=== PATIENT | male | born 1995 | race Caucasian/White ===

== ENCOUNTER 2020-03-10 14:47 | Emergency (ER) | payer BC, OTHER, SELFPAY ==
[~2020-03-10] VITALS: Ht 170.2 cm; Wt 62.7 kg
[2020-03-10] MEDS ORDERED: LORazepam 2 MG/ML VIAL IV STA (14:59)
[2020-03-10] MEDS ORDERED: NS 1,000 ML IV ONE ×2 (15:00→16:00)
[2020-03-10 15:31] LABS: BASO # 0.1 10^3/uL (0.0-0.2); BASO % 0.5 % (0.0-1.0); EOS % 0.3 % (0.0-3.0); HEMATOCRIT 49.7 % (42.0-52.0); HEMOGLOBIN 16.7 g/dl (13.5-17.5); LYMPH # 1.3 10^3/uL (1.5-5.0); LYMPH % 12.9 % (24.0-44.0); MEAN CORPUSCULAR HEMOGLOBIN 30.6 pg (27.0-33.0); MEAN CORPUSCULAR HGB CONC 33.6 g/dl (32.0-36.5); MONO # 0.8 10^3/uL (0.0-0.8); MONO % 7.5 % (0.0-5.0); NEUTROPHILS # 8.2 10^3/uL (1.5-8.5); NEUTROPHILS % 78.5 % (36.0-66.0); PLATELET COUNT, AUTOMATED 304 10^3/uL (150-450); RED BLOOD COUNT 5.46 10^6/uL (4.30-6.10); WHITE BLOOD COUNT 10.4 10^3/uL (4.0-10.0)
[2020-03-10 16:27] LABS: ACETAMINOPHEN LEVEL < 2.0 UG/ML (10.0-30.0); ALBUMIN 4.5 GM/DL (3.2-5.2); ALT/SGPT 13 U/L (12-78); BILIRUBIN,DIRECT 0.3 MG/DL (0.0-0.2); BLOOD UREA NITROGEN 9 MG/DL (7-18); CALCIUM LEVEL 9.6 MG/DL (8.5-10.1); CARBON DIOXIDE LEVEL 27 MEQ/L (21-32); CHLORIDE LEVEL 103 MEQ/L (98-107); CPK CREATINE PHOSPHOKINASE 98 U/L (39-308); CREATININE FOR GFR 1.01 MG/DL (0.70-1.30); ETHYL ALCOHOL (ETHANOL) < 0.003 % (0.000-0.010); GLOMERULAR FILTRATION RATE > 60.0 (>60); GLUCOSE, FASTING 113 MG/DL (70-100); POTASSIUM SERUM 3.8 MEQ/L (3.5-5.1); SALICYLATE LEVEL < 1.7 MG/DL (5.0-30.0); SODIUM LEVEL 138 MEQ/L (136-145); TOTAL PROTEIN 7.7 GM/DL (6.4-8.2)
[2020-03-10 17:33] VITALS: BP 125/58
--- NOTE | 2020-03-10 18:55 | ECGEPIP ---
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
== END 2020-03-10 17:35 | disposition home or self-care (01) ==
LOC: M ED 14:47
DX: F15.10 Other stimulant abuse, uncomplicated (principal); F14.10 Cocaine abuse, uncomplicated
CPT/HCPCS: 36415; 80048; 80076; 82550; 85025; 93005; 93041; 94760; 96361; 96374; 99285; G0480; J2060

== ENCOUNTER 2021-01-02 18:51 | Emergency (ER) | payer OTHER ==
[~2021-01-02] VITALS: Ht 170.2 cm; Wt 67.9 kg
--- OUTSIDE RECORDS SUMMARY | 2021-01-02 18:57 | CCD ---
Author Author [facility] Organization [facility] Address Unknown Phone Unavailable Support Name Relationship Address Phone MEJIA CAGLE Next Of Kin [address] [place] [address] UE Next Of Kin Unknown Unavailable STUDENT Next Of Kin Unknown ST Next Of Kin Unknown Unavailable SU CAGLE Next Of Kin [address] [place] [address] HANSMichelle Gutierrez Next Of Kin [address] [place] [address] Re-disclosure Warning The records that you are about to access may contain information from federally-assisted alcohol or drug abuse programs. If such information is present, then the following federally mandated warning applies: This information has been disclosed to you from records protected by federal confidentiality rules (42 CFR part 2). The federal rules prohibit you from making any further disclosure of this information unless further disclosure is expressly permitted by the written consent of the person to whom it pertains or as otherwise permitted by 42 CFR part 2. A general authorization for the release of medical or other information is NOT sufficient for this purpose. The Federal rules restrict any use of the information to criminally investigate or prosecute any alcohol or drug abuse patient.The records that you are about to access may contain highly sensitive health information, the redisclosure of which is protected by Article 27-F of the [facility] Public Health law. If you continue you may have access to information: Regarding HIV / AIDS; Provided by facilities licensed or operated by the [facility] Office of Mental Health; or Provided by the [facility] Office for People With Developmental Disabilities. If such information is present, then the following [facility] mandated warning applies: This information has been disclosed to you from confidential records which are protected by state law. State law prohibits you from making any further disclosure of this information without the specific written consent of the person to whom it pertains, or as otherwise permitted by law. Any unauthorized further disclosure in violation of state law may result in a fine or fci sentence or both. A general authorization for the release of medical or other information is NOT sufficient authorization for further disc losure. Family History Family Member Name Family Member Gender Family Member Status Date o f Status Description Data Source(s) Unknown Unknown Problem MEDENT ([facility]) Unknown Unknown Problem [facility] ([facility]) Medications No Information Insurance Providers Payer name Policy type / Coverage type Policy ID Covered republican ID Covered republican's relationship to downing Policy Downing Plan Information [employer] [place]/307 [id number] SP [id number] [employer] [id number] SELF PAY ONLY [id number] SP [id number] [employer] [place] PPO 302/307 [id number] SP [id number] BCBS [id number] Blue Cross/Bl ue Shield [id number] BCBS/Blue Card Commercial [id number] Family Dependent [id number] BCBS/Blue Card Commercial [id number] Family Dependent [id number] [employer] PPO O [id number] C [id number] [employer] [id number] 2 [id number] [facility] [place] [id number] [facility] [id number] [employer] [id number] [facility] [place] [id number] [facility] [id number] Problems, Conditions, and Diagnoses No Information Surgeries/Procedures No Information Results No Information Social History No Information
--- OUTSIDE RECORDS SUMMARY | 2021-01-02 20:38 | CCD ---
Author Author [facility] Organization [facility] Address Unknown Phone Unavailable Support Name Relationship Address Phone MARIA CACE Next Of Kin [address] [place] [address] MEJIA CAGLE Next Of Kin [address] [place] [address] UE Next Of Kin Unknown Unavailable STUDENT Next Of Kin Unknown ST Next Of Kin Unknown Unavailable SU CAGLE Next Of Kin [address] [facility] [address] [place] [address] Michelle CAGLE Next Of Kin [address] [place] [address] Re-disclosure Warning The records that you are [...] is protected by Article 27-F of the [place] State Public Health law. If you continue you may have access to information: Regarding HIV / AIDS; Provided by facilities licensed or operated by the [facility] Office of Mental Health; or Provided by the [facility] Office for People With Developmental Disabilities. If such information is present, then the following [facility] mandated warning applies: This information has been [...] law may result in a fine or detention sentence or both. A general authorization for [...] type / Coverage type Policy ID Covered constitution party ID Covered constitution party's relationship to avila Policy Avila Plan Information [employer] [place] P[place] 302/307 [id number] SP [id number] [employer] [id number] SF2 [id number] SELF PAY ONLY [id number] SP [id number] [employer] [place] PPO 302/307 [id number] SP [id number] BCBS [id number] Blue Cross/Bl ue Shield [id number] BCBS/Blue Card Commercial [id number] Family Dependent [id number] BCBS/Blue Card Commercial [id number] Family Dependent [id number] [employer] PPO O [id number] C [id number] [employer] [id number] SF2 [id number] [employer] [facility] [place] [id number] [facility] [id number] [employer] [id number] [facility] [place] [id number] [facility] [id number] Problems, Conditions, and Diagnoses No Information Surgeries/Procedures No Information Results No Information Social History No Information
--- NOTE | 2021-01-02 20:58 | REPVR ---
PROCEDURE INFORMATION: Exam: US Pelvis Limited, Transabdominal, Soft tissue Exam date and time: 01/02/2021 8:45 PM Age: 25 years old Clinical indication: Pelvic pain; Additional info: R testicle pain x 2wks TECHNIQUE: Imaging protocol: Real-time transabdominal pelvic ultrasound with image documentation. Limited exam. Exam focused on the soft tissue. COMPARISON: Scrotal, US 01/02/2021 8:28 PM FINDINGS: No inguinal hernia is visualized. No fluid collection or discrete mass is visualized. IMPRESSION: No inguinal hernia is visualized. Electronically signed by: Ney Valdovinos On 01/02/2021 20:58:11 PM
--- NOTE | 2021-01-02 20:58 | REPVR ---
PROCEDURE INFORMATION: Exam: US Scrotum and Artery or Vein of the Abdominal and/or Reproductive Organs, Limited Scrotum Exam date and time: 01/02/2021 8:45 PM Age: 25 years old Clinical indication: Scrotum pain; Additional info: R testicle pain x 2wks TECHNIQUE: Imaging protocol: Real-time ultrasound of the scrotum. Real-time duplex ultrasound scan of the arterial or venous flow with turner scale, color Doppler flow and spectral waveform analysis with image documentation. Limited Duplex exam focused of the scrotum. Duplex images required to evaluate for torsion and other vascular conditions. COMPARISON: RENAL US 04/14/2015 12:55 PM FINDINGS: Right testicle: Right testicle measures 4.0 x 2.1 x 2.4 cm. Right testicle appears within normal limits. Normal Doppler waveforms without evidence of torsion. Left testicle: Left testicle measures 4.0 x 2.4 x 3.7 cm. Left testicle appears within normal limits. Normal Doppler waveforms without evidence of torsion. Epididymides: Normal. Scrotum: Normal. IMPRESSION: No acute abnormality. Electronically signed by: Ney Valdovinos On 01/02/2021 20:58:21 PM
[2021-01-02] MEDS ORDERED: DOXYCYCLINE HYCLATE 100MG TABLET PO ONE (21:10)
[2021-01-02] MEDS ORDERED: LIDOCAINE 1% SDV 5ML VIAL DILUENT ONE (21:10)
[2021-01-02] MEDS ORDERED: cefTRIAXone 500MG VIAL (J0696 PER 250MG) IM ONE (21:10)
[2021-01-02] MEDS ORDERED: DOXY-443 PO (21:28)
[2021-01-02 21:33] VITALS: BP 142/70
[2021-01-02 22:51] LABS: GC DNA AMPLIFICATION NEGATIVE (NEGATIVE)
== END 2021-01-02 21:39 | disposition home or self-care (01) ==
LOC: M ED 18:51
DX: N50.811 Right testicular pain (principal); J45.909 Unspecified asthma, uncomplicated
CPT/HCPCS: 76857; 76870; 81001; 87661; 93976; 96372; 99283; J0696

== ENCOUNTER 2022-05-11 16:48 | Emergency (ER) | payer BC, OTHER ==
[~2022-05-11] VITALS: Ht 167.6 cm; Wt 61.4 kg
[~2022-05-11 16:48] MED LIST: DOXY-443 PO
[2022-05-11] MEDS ORDERED: NS 1,000 ML IV ONE (17:00)
[2022-05-11] MEDS ORDERED: IPRATROPIUM 0.5MG/ALBUTEROL 2.5MG INH SOL UD 3ML (DUONEB) NEB ONE (21:05)
[2022-05-11 23:19] LABS: VENOUS BASE EXCESS -2.7 (-2.0-2.0); VENOUS O2 SATURATION 97.1 % (60.0-80.0); VENOUS PARTIAL PRESSURE CO2 43.1 mmHg (38.0-50.0); VENOUS PARTIAL PRESSURE O2 93.9 mmHg (30.0-50.0); VENOUS PH 7.345 UNITS (7.330-7.430); VENOUS STANDARD HCO3 22.2 MEQ/L; VENOUS TOTAL CO2 24.3 MEQ/L (24.0-28.0)
[2022-05-11 23:27] LABS: BASO # 0.1 10^3/uL (0.0-0.2); BASO % 0.8 % (0.0-1.0); EOS # 0.8 10^3/uL (0.0-0.5); EOS % 7.2 % (0.0-3.0); HEMATOCRIT 46.7 % (42.0-52.0); HEMOGLOBIN 15.9 g/dl (13.5-17.5); LYMPH # 2.8 10^3/uL (1.5-5.0); LYMPH % 26.2 % (24.0-44.0); MEAN CORPUSCULAR HEMOGLOBIN 30.2 pg (27.0-33.0); MEAN CORPUSCULAR VOLUME 88.8 fl (80.0-96.0); MONO # 0.6 10^3/uL (0.0-0.8); MONO % 5.8 % (2.0-8.0); NEUTROPHILS # 6.4 10^3/uL (1.5-8.5); NEUTROPHILS % 59.7 % (36.0-66.0); PLATELET COUNT, AUTOMATED 345 10^3/uL (150-450); RED BLOOD COUNT 5.26 10^6/uL (4.30-6.10); WHITE BLOOD COUNT 10.8 10^3/uL (4.0-10.0)
[2022-05-11 23:53] LABS: ALBUMIN 2.8 G/DL (3.2-5.2); ALKALINE PHOSPHATASE 38 U/L (46-116); ALT/SGPT 13 U/L (7.0-40); AST/SGOT 16 U/L (<34); BILIRUBIN,TOTAL 0.9 MG/DL (0.3-1.2); BLOOD UREA NITROGEN 6 MG/DL (9-23); CALCIUM LEVEL 6.4 MG/DL (8.5-10.1); CARBON DIOXIDE LEVEL 22 MMOL/L (20-31); CHLORIDE LEVEL 114 MMOL/L (98-107); CREATININE FOR GFR 0.58 MG/DL (0.70-1.30); GLOMERULAR FILTRATION RATE > 60.0 (>60); GLUCOSE, FASTING 83 MG/DL (60-100); MAGNESIUM LEVEL 1.5 MG/DL (1.8-2.4); POTASSIUM SERUM 3.2 MMOL/L (3.5-5.1); SODIUM LEVEL 143 MMOL/L (136-145); TOTAL PROTEIN 4.6 G/DL (5.7-8.2)
[2022-05-11 23:54] LABS: CPK CREATINE PHOSPHOKINASE 103 U/L (46-171)
[2022-05-12 00:30] VITALS: BP 127/78
[2022-05-12] MEDS ORDERED: MAG SULF 1GM/100ML (MAG RUN) 1 GM in IV 1 EA IV ONE (00:35)
[2022-05-12] MEDS ORDERED: NS 1,000 ML IV ONE (00:35)
[2022-05-12 00:58] VITALS: O2SAT 99
[2022-05-12] MEDS ORDERED: MAGNESIUM OXIDE 400MG TAB (MAG-OX) PO ONE (01:00)
[2022-05-12] MEDS ORDERED: POTASSIUM CHLORIDE 10MEQ SR TABLET PO ONE (01:00)
== END 2022-05-12 01:10 | disposition home or self-care (01) ==
LOC: M ED 16:48
DX: F19.10 Other psychoactive substance abuse, uncomplicated (principal); F10.90 Alcohol use, unspecified, uncomplicated; E83.42 Hypomagnesemia; F17.200 Nicotine dependence, unspecified, uncomplicated; J45.909 Unspecified asthma, uncomplicated; Z79.891 Long term (current) use of opiate analgesic

== ENCOUNTER → 2023-04-10 | Outpatient (CLI) | payer SELFPAY | LOC: M OUTALCOH 07:43 | PROVIDERS: ATTEND Psychiatry & Neurology Psychiatry | DX: F10.10 Alcohol abuse, uncomplicated (principal) ==

== ENCOUNTER 2023-04-17 13:37 | Outpatient (RCR) | payer SELFPAY | END 2023-05-07 | LOC: M OUTALCOH 13:37 | PROVIDERS: ATTEND Psychiatry & Neurology Psychiatry | DX: F15.20 Other stimulant dependence, uncomplicated (principal); Z72.0 Tobacco use ==